=== PATIENT | male | born 1970 | race Caucasian/White ===

== ENCOUNTER 2018-04-06 17:02 | Emergency (ER) | payer SELFPAY ==
[~2018-04-06] VITALS: Ht 167.6 cm; Wt 63.6 kg
[~2018-04-06 17:02] MED LIST: AMOXICILLIN500 MG OR; LORTAB 10 PO
[2018-04-06 18:10] LABS: HEMATOCRIT 43.6 % (39.0-50.0); HEMOGLOBIN 15.3 g/dl (14.0-18.0); IMMATURE GRANULOCYTES 0.5 % (0.0-5.0); MEAN CELL VOLUME 93.8 fL CALC (80.0-100.0); MEAN CORPUSCULAR HGB 32.9 pG CALC (26.0-32.0); MEAN CORPUSCULAR HGB CONC 35.1 g/L CALC (32.0-36.0); NEUT# 9.85 thou/uL (1.82-7.42); RED BLOOD COUNT 4.65 mill/uL (4.70-6.10); RED CELL DISTRI WIDTH 13.2 % (11.5-15.5)
[2018-04-06 18:24] LABS: ALBUMIN 4.9 g/dL (3.2-5.0); ALKALINE PHOSPHATASE 106 u/l (38-126); ANION GAP 18 (6-22 (CALC)); BILIRUBIN, TOTAL 0.6 mg/dL (0.0-1.4); BUN 7 mg/dL (9-20); BUN/CREATININE RATIO 12 (12-20 (CALC)); CARBON DIOXIDE 23 mmol/l (22-30); CHLORIDE 100 mmol/l (95-108); CREATININE 0.6 mg/dL (0.7-1.3); GFR > 60 ML/MIN (>=60 (CALC)); GFR FOR AFR.AMER. > 60 ML/MIN (>=60 (CALC)); POTASSIUM 4.3 mmol/l (3.5-5.1); SGOT/AST 30 u/l (17-59); SODIUM 136 mmol/l (137-146); TOTAL PROTEIN 8.6 g/dL (6.3-8.2)
[2018-04-06 20:53] VITALS: BP 139/84
== END 2018-04-06 20:53 | disposition home or self-care (01) | DRG 603 ==
LOC: ED 17:02
PROVIDERS: Emergency Medicine
PROC: 0H94XZZ Drainage of Neck Skin, External Approach (ICD-10-PCS; principal; 2018-04-06)
DX: L02.11 Cutaneous abscess of neck (principal); F17.210 Nicotine dependence, cigarettes, uncomplicated
CPT/HCPCS: Q9967

== ENCOUNTER 2018-04-08 10:21 | Emergency (ER) | payer SELFPAY ==
[~2018-04-08] VITALS: Ht 167.6 cm; Wt 63.6 kg
[2018-04-08 11:12] VITALS: BP 155/96
== END 2018-04-08 11:12 | disposition home or self-care (01) | DRG 951 ==
LOC: ED 10:21
DX: Z48.01 Encounter for change or removal of surgical wound dressing (principal); F17.210 Nicotine dependence, cigarettes, uncomplicated

== ENCOUNTER 2018-04-10 15:42 | Emergency (ER) | payer SELFPAY ==
[~2018-04-10] VITALS: Ht 167.6 cm; Wt 70.0 kg
[2018-04-10] MEDS ORDERED: BACTRIM DS1 TAB PO (15:57)
[2018-04-10 16:05] VITALS: BP 138/66
== END 2018-04-10 16:05 | disposition home or self-care (01) | DRG 951 ==
LOC: ED 15:42
DX: Z48.01 Encounter for change or removal of surgical wound dressing (principal)

== ENCOUNTER 2019-01-19 17:20 | Emergency (ER) | payer SELFPAY ==
[~2019-01-19] VITALS: Ht 167.6 cm; Wt 64.0 kg
[~2019-01-19 17:20] MED LIST changes: +BACTRIM DS1 TAB PO
[2019-01-19] MEDS ORDERED: CEPHALEXIN500 MG PO (18:12)
[2019-01-19] MEDS ORDERED: BACTRIM DS1 TAB PO (18:12)
[2019-01-19] MEDS ORDERED: LORTAB 1010 MG PO (18:12)
[2019-01-19 18:19] VITALS: BP 157/101
== END 2019-01-19 18:33 | disposition home or self-care (01) | DRG 603 ==
LOC: ED 17:20
PROC: 0H9EXZZ Drainage of Left Lower Arm Skin, External Approach (ICD-10-PCS; principal; 2019-01-19)
DX: L02.414 Cutaneous abscess of left upper limb (principal); F17.210 Nicotine dependence, cigarettes, uncomplicated; B95.62 Methicillin resistant Staphylococcus aureus infection as the cause of diseases classified elsewhere

== ENCOUNTER 2019-01-20 11:35 | Emergency (ER) | payer SELFPAY ==
[~2019-01-20] VITALS: Ht 167.6 cm; Wt 66.0 kg
[~2019-01-20 11:35] MED LIST changes: +CEPHALEXIN500 MG PO; +LORTAB 1010 MG PO
[2019-01-20 12:45] VITALS: BP 125/86
== END 2019-01-20 12:45 | disposition home or self-care (01) | DRG 951 ==
LOC: ED 11:35
DX: Z48.01 Encounter for change or removal of surgical wound dressing (principal); F17.210 Nicotine dependence, cigarettes, uncomplicated

== ENCOUNTER 2019-01-22 14:13 | Emergency (ER) | payer SELFPAY ==
[~2019-01-22] VITALS: Ht 167.6 cm; Wt 65.9 kg
[2019-01-22 15:00] VITALS: BP 148/97
== END 2019-01-22 15:00 | disposition home or self-care (01) | DRG 951 ==
LOC: ED 14:13
DX: Z48.01 Encounter for change or removal of surgical wound dressing (principal); F17.210 Nicotine dependence, cigarettes, uncomplicated

== ENCOUNTER 2022-06-15 14:06 | Emergency (ER) | payer SELFPAY ==
[~2022-06-15] VITALS: Ht 157.5 cm; Wt 62.7 kg
[2022-06-15 15:31] LABS: BASO% 0.5 % (0-3); EOS% 1.3 % (0-8); HEMATOCRIT 40.2 % (39.0-50.0); HEMOGLOBIN 13.8 g/dl (14.0-18.0); IMMATURE GRANULOCYTES 0.3 % (0.0-5.0); MEAN CELL VOLUME 94.4 fL CALC (80.0-100.0); MEAN CORPUSCULAR HGB 32.4 pG CALC (26.0-32.0); MEAN CORPUSCULAR HGB CONC 34.3 g/dL CAL (32.0-36.0); MONO% 8.7 % (2-13); NEUT# 6.56 thou/uL (1.82-7.42); NEUT% 53.2 % (42-76); RED BLOOD COUNT 4.26 mill/uL (4.70-6.10); RED CELL DISTRI WIDTH 13.3 % (11.5-15.5)
[2022-06-15 15:35] LABS: ALBUMIN 4.3 g/dL (3.2-5.0); ALKALINE PHOSPHATASE 94 u/l (38-126); ANION GAP 16 (6-22 (CALC)); BUN 4 mg/dL (9-20); BUN/CREATININE RATIO 7 (12-20 (CALC)); CARBON DIOXIDE 20 mmol/l (22-30); CHLORIDE 101 mmol/l (95-108); CREATININE 0.6 mg/dL (0.7-1.3); GFR FOR AFR.AMER. > 60 ML/MIN (>=60 (CALC)); GFR OTHER RACES > 60 ML/MIN (>=60 (CALC)); LIPASE 230 u/l (23-300); POTASSIUM 3.5 mmol/l (3.5-5.1); SODIUM 133 mmol/l (137-146); TOTAL PROTEIN 8.1 g/dL (6.3-8.2)
[2022-06-15 15:43] LABS: PROTHROMBIN TIME 9.6 SECONDS (9.0-12.5)
[2022-06-15 15:47] LABS: D-DIMER 5.85 mg/L (0.19-0.60)
[2022-06-15 15:54] LABS: BILIRUBIN, TOTAL 0.3 mg/dL (0.2-1.3); SGOT/AST 58 u/l (17-59)
[2022-06-15 17:34] LABS: URINE BILIRUBIN - DIPSTICK NEGATIVE (NEGATIVE); URINE BLOOD DIPSTICK TRACE-INTACT (NEGATIVE); URINE COLOR YELLOW; URINE GLUCOSE - DIPSTICK NEGATIVE (NEGATIVE); URINE KETONE NEGATIVE (NEGATIVE); URINE LEUK ESTERASE NEGATIVE (NEGATIVE); URINE PH 5.5 (4.5-8.0); URINE PROTEIN - DIPSTICK NEGATIVE (NEG-TRACE); URINE UROBILINOGEN - DIPSTICK 0.2 E.U./dL (0.2)
[2022-06-15 17:39] LABS: URINE NITRITE - DIPSTICK NEGATIVE (Negative)
[2022-06-15] MEDS ORDERED: NAPROXEN500 MG PO (19:19)
[2022-06-15 20:33] VITALS: BP 126/81
== END 2022-06-15 20:48 | disposition home or self-care (01) | DRG 313 ==
LOC: ED 14:06
PROVIDERS: Nurse Practitioner
DX: R07.9 Chest pain, unspecified (principal); F17.210 Nicotine dependence, cigarettes, uncomplicated
CPT/HCPCS: Q9967

== ENCOUNTER 2023-11-13 15:02 | Emergency (ER) | payer MEDICAID ==
[~2023-11-13] VITALS: Ht 160 cm; Wt 58.9 kg
[2023-11-13] VITALS (13 sets, daily range): BP systolic 82–118; BP diastolic 56–80
[~2023-11-13 15:02] MED LIST changes: +NAPROXEN500 MG PO
[2023-11-13] MEDS ORDERED: SODIUM CHLORIDE 0.9% 1,000 ML IV ONE ×2 (15:15→16:15)
[2023-11-13 15:38] LABS: BASO% 0.2 % (0-3); EOS% 0.1 % (0-8); HEMATOCRIT 35.5 % (39.0-50.0); HEMOGLOBIN 12.1 g/dl (14.0-18.0); MEAN CELL VOLUME 88.5 fL CALC (80.0-100.0); MEAN CORPUSCULAR HGB 30.2 pG CALC (26.0-32.0); MEAN CORPUSCULAR HGB CONC 34.1 g/dL CAL (32.0-36.0); MONO% 17.9 % (2-13); NEUT# 11.19 thou/uL (1.82-7.42); NEUT% 50.5 % (42-76); RED BLOOD COUNT 4.01 mill/uL (4.70-6.10); RED CELL DISTRI WIDTH 17.1 % (11.5-15.5)
[2023-11-13 15:55] LABS: INTERNATIONAL NORMALIZED RATIO 1.2 RATIO (0.7-1.3)
[2023-11-13 15:56] LABS: IMMATURE GRANULOCYTES 9.3 % (0.0-5.0)
[2023-11-13 15:57] LABS: PROTHROMBIN TIME 11.3 SECONDS (9.0-12.5)
[2023-11-13 16:02] LABS: D-DIMER 17.93 mg/L (0.19-0.60)
[2023-11-13 16:03] LABS: ALBUMIN 3.5 g/dL (3.2-5.0); BILIRUBIN, TOTAL 0.4 mg/dL (0.2-1.3); CREATININE 0.7 mg/dL (0.7-1.3); POTASSIUM 3.5 mmol/l (3.5-5.1); TOTAL PROTEIN 7.5 g/dL (6.3-8.2)
[2023-11-13] MEDS ORDERED: AZITHROMYCIN 500 MG in SODIUM CHLORIDE 0.9% 250 ML IV ONE (16:25)
[2023-11-13] MEDS ORDERED: cefTRIAXone SODIUM 2 GM in SODIUM CHLORIDE 0.9% 100 ML IV ONE (16:25)
[2023-11-13] MEDS ORDERED: Heparin SODIUM (Porcine) 500 ML IV ONE (17:25)
[2023-11-13] MEDS ORDERED: Heparin SODIUM (Porcine) 5,000 UNITS/ML SDV IV ONE (17:25)
[2023-11-13] MEDS ORDERED: AZITHROMYCIN 500 MG/VIAL SDV IV ONE (17:50)
[2023-11-13] MEDS ORDERED: SODIUM CHLORIDE 0.9% 250 ML IV ONE (17:51)
== END 2023-11-13 19:00 | disposition short-term general hospital (02) ==
LOC: ED 15:02
PROVIDERS: Family Medicine
DX: U07.1 COVID-19 (principal); J12.82 Pneumonia due to coronavirus disease 2019; I26.94 Multiple subsegmental thrombotic pulmonary emboli without acute cor pulmonale; I10 Essential (primary) hypertension; C62.90 Malignant neoplasm of unspecified testis, unspecified whether descended or undescended; C79.9 Secondary malignant neoplasm of unspecified site; F17.200 Nicotine dependence, unspecified, uncomplicated; Z79.60 Long term (current) use of unspecified immunomodulators and immunosuppressants
CPT/HCPCS: J1644; Q9967